=== PATIENT | female | born 1960 | race Caucasian/White ===

== ENCOUNTER 2019-08-22 15:09 | Outpatient (CLI) | payer OTHER, SELFPAY ==
--- NOTE | ~2019-08-22 | MM_ITS ---
EXAMINATION: MM screening [facility] BI w yvonne HISTORY: Screening mammogram TECHNIQUE: Craniocaudal and mediolateral oblique 3-D tomosynthesis images were obtained and synthetic 2-D images were generated. CAD analysis was submitted and interpreted. COMPARISON: Comparison to multiple prior studies sequentially, with oldest reviewed study dated 09/2013. BREAST PARENCHYMAL COMPOSITION: There are scattered areas of fibroglandular density. FINDINGS: There is no evidence of suspicious mass, calcification, or architectural distortion to sugg est malignancy in either breast. There has been no suspicious interval change. IMPRESSION: 1. No mammographic evidence of malignancy. 2. Recommend routine screening mammography in one year. BI-RADS Category 1: Negative Reviewed, dictated and finalized at location A.
== END 2019-08-22 15:10 | disposition home or self-care (01) ==
LOC: ANHIMG 15:13
PROVIDERS: PCP Family Medicine; Visit Provider Advanced Practice Midwife
DX: Z12.31 Encounter for screening mammogram for malignant neoplasm of breast (principal)
CPT/HCPCS: 77063; 77067

== ENCOUNTER 2019-09-22 14:36 | Outpatient (CLI) | payer OTHER, SELFPAY ==
--- NOTE | ~2019-09-22 | DEXA_ITS ---
Bone Density Report Name: Shona Sanchez Age: 59 Sex: Female Ethnicity: White Date of : 1960 Indication: osteopenia; monitoring treatment; parental hip fracture; height loss; prior fracture; hysterectomy; post menopausal Referring Provider: CYNTHIA BONNER Study: Bone densitometry was performed. Exam Date: September 22, 2019 Accession number: [id number] Bone Density: Region BMD T-score Z-score Classification AP Spine (L1-L4) 0.844 -1.8 -0.6 Osteopenia Femoral Neck (Left) 0.515 -3.0 -1.8 Osteoporosis Total Hip (Left) 0.730 -1.7 -0.9 Osteopenia Total Hip Bilateral Avg 0.729 -1.8 -0.9 Osteopenia Femoral Neck (Right) 0.516 -3.0 -1.8 Osteoporosis Total Hip (Right) 0.727 -1.8 -0.9 Osteopenia World Health Organization criteria for BMD impression classify patients as: Normal (T-score at or above -1.0), Osteopenia (T-score between -1.0 and -2.5), or Osteoporosis (T-score at or below -2.5). 10-year Fracture Risk: FRAX not reported because: Some T-score for Spine Total or Hip Total or Femoral Neck at or below -2.5 Treated for osteoporosis Previous Exams: Region Exam Age BMD T-score BMD Change BMD Change Date g/cm2 vs Baseline vs Previous AP Spine(L1-L4) 09/22/2019 59 0.844 -1.8 0.028(3.4%)* -0.019(-2.2%) 07/22/2017 57 0.862 -1.7 0.046(5.7%)* 0.046(5.7%)* 08/05/2014 54 0.816 -2.1 Total Hip(Left) 09/22/2019 59 0.730 -1.7 -0.006(-0.8%) -0.056(-7.2%)* 07/22/2017 57 0.786 -1.3 0.051(6.9%)* 0.051(6.9%)* 08/05/2014 54 0.736 -1.7 Total Hip(Right) 09/22/2019 59 0.727 -1.8 -0.008(-1.0%) -0.041(-5.3%)* 07/22/2017 57 0.768 -1.4 0.033(4.5%)* 0.033(4.5%)* 08/05/2014 54 0.735 -1.7 *Denotes significance at 95% confidence level, LSC for AP Spine = 0.022 g/cm2, LSC for Total Hip = 0.027 g/cm2 Clinical Information Provided by Patient: Has had a low trauma fracture Parent has had a hip fracture Has 3 or more alcoholic drinks per day Is being treated for osteoporosis Has used the following medications: Fosamax (i.e. alendronate), Vitamin D, Calcium Has the following medical conditions: Hysterectomy Patient maximum height was 64.0 Menopause Age: 54 Does not regularly consume dairy products Drinks caffeinated beverages Onset of menses at age 12 Number of children 0 Impression: The patient has established osteoporosis, based on the Left Femoral Neck T-score and the existence of a prior fracture. The patient has risk fact
== END 2019-09-22 14:37 | disposition home or self-care (01) ==
PROVIDERS: PCP Family Medicine; Visit Provider Family Medicine
DX: Z78.0 Asymptomatic menopausal state (principal); M85.88 Other specified disorders of bone density and structure, other site; M81.0 Age-related osteoporosis without current pathological fracture; M85.852 Other specified disorders of bone density and structure, left thigh; M85.851 Other specified disorders of bone density and structure, right thigh
CPT/HCPCS: 77080

== ENCOUNTER 2020-06-08 16:40 | Outpatient (CLI) | payer OTHER, SELFPAY | END 2020-06-08 16:41 | disposition home or self-care (01) | LOC: ANHCOVIDVC 16:40 | PROVIDERS: PCP Family Medicine | DX: Z23 Encounter for immunization (principal) | CPT/HCPCS: 0001A; 91300 ==

== ENCOUNTER 2020-06-29 16:38 | Outpatient (CLI) | payer OTHER, SELFPAY | END 2020-06-29 16:39 | disposition home or self-care (01) | LOC: ANHCOVIDVC 16:38 | PROVIDERS: PCP Family Medicine | DX: Z23 Encounter for immunization (principal) | CPT/HCPCS: 0002A; 91300 ==

== ENCOUNTER 2020-08-08 21:07 | Emergency (ER) | payer OTHER, SELFPAY ==
[2020-08-08 21:27] VITALS: BP 147/70; PULSE 73; RESP 14; TEMP 37.1; O2SAT 97
[2020-08-08 21:36] VITALS: BP 140/76; PULSE 73; RESP 18; TEMP 37.1; O2SAT 99
--- NOTE | 2020-08-08 22:08 | ED.EAR ---
HPI - Ear Problem General Chief complaint: Ear Stated complaint: bug in ear Time Seen by Provider: 08/08/20 21:59 Source: patient and family Mode of arrival: ambulatory Limitations: no limitations History of Present Illness HPI Narrative: 60-year-old with no major medical problems here with complaints of possible foreign body in the right ear. Patient states that she was mowing the lawn this evening accidentally pine lemon got into her right ear soon after she felt a bug crawling in the ear. She states that she is feeling for quite some time however now she feels much better she denies any other complaints MD Complaint: foreign body (Right ear) Location: right ear Duration: resolved Severity: mild Relieving factors: nothing Exacerbating factors: nothing Discharge from ear: Reports no Related Data Allergies Allergy/AdvReac Type Severity Reaction Status Date / Time No Known Allergies Allergy Mild Verified 04/09/20 12:12 Review of Systems Review of Systems: All systems reviewed & are unremarkable except as noted in HPI and below Constitutional: Constitutional: Reports no additional constitutional complaints Eyes: Eyes: Reports no additional eye complaints ENT: Reports as per HPI Cardiovascular: Cardiovascular: Reports no additional cardiovascular complaints Respiratory: Respiratory: Reports no additional respiratory complaints Gastrointestinal: Gastrointestinal: Reports no additional gastrointestinal complaints Musculoskeletal: Musculoskeletal: Reports no additional musculoskeletal complaints PMFSH Past Medical History Medical History Anxiety, generalized BMI 28.0-28.9,adult Diarrhea Screening for lipid disorders Thoracic spine dysfunction Surgical History Surgical History History of hysterectomy History of tonsillectomy and adenoidectomy Family History Family History Father Family history of Alzheimer's disease Family history of congestive heart failure Mother Family history of primary malignant neoplasm of liver Other Cerebrovascular accident Family history of arthritis Family history of heart disease in male family member before age 55 Family history of malignant neoplasm Social History Social History Smoking status: Former smoker Smoking end date: 02/24/08 Alcohol intake: current Gender identity (if verbalized by the patient): Female Exam Narrative: Exam Narrative: GENERAL: Well-appearing, well-nourished, and in no acute distress. HEAD: Normocephalic, atraumatic. EYES: PERRLA and EOMI. ENT: Nares clear, no rhinorrhea or epistaxis. Mucous membranes moist. Both the ear canals are normal no foreign body seen NECK: Supple. CHEST: Clear to auscultation. No respiratory distress. HEART: Regular rate and rhythm. No murmur heard. EXTREMITIES: Normal range of motion. No edema. SKIN: Warm, dry, no rash. NEURO: No focal deficits. Alert and oriented x3. PSYCH: Normal mood and affect. Course Course Emergency Course: I did not see any foreign body in either canals. Patient feels happy about it . Vital Signs Vital signs: Vital Signs Temperature 37.1 C 08/08/20 21:27 Pulse Rate 73 08/08/20 21:27 Respiratory Rate 14 08/08/20 21:27 Blood Pressure 147/70 H 08/08/20 21:27 Pulse Oximetry 97 08/08/20 21:27 Temperature 37.1 C 08/08/20 21:36 Pulse Rate 73 08/08/20 21:36 Respiratory Rate 18 08/08/20 21:36 Blood Pressure 140/76 08/08/20 21:36 Pulse Oximetry 99 08/08/20 21:36 Medical Decision Making Vital Signs Vital Signs: Vital Signs Temperature 37.1 C 08/08/20 21:27 Pulse Rate 73 08/08/20 21:27 Respiratory Rate 14 08/08/20 21:27 Blood Pressure 147/70 H 08/08/20 21:27 Pulse Oximetry 97 08/08/20 21:27 Temperature 37
== END 2020-08-08 22:21 | disposition home or self-care (01) ==
PROVIDERS: Emergency Provider Family Medicine; PCP Family Medicine
DX: H93.8X1 Other specified disorders of right ear (principal); Z87.891 Personal history of nicotine dependence
CPT/HCPCS: 99281

== ENCOUNTER 2020-09-21 14:59 | Outpatient (CLI) | payer BC, SELFPAY ==
--- NOTE | ~2020-09-21 | MM_ITS ---
EXAMINATION: MM screening blank BI w yvonne HISTORY: Screening mammogram TECHNIQUE: Craniocaudal and mediolateral oblique 3-D tomosynthesis images were obtained and synthetic 2-D images were generated. CAD analysis was submitted and interpreted. COMPARISON: , 07/26/2018, 07/22/2017 bilateral digital screening mammogram examinations BREAST PARENCHYMAL COMPOSITION: The breasts are almost entirely fatty. FINDINGS: There is no evidence of suspicious mass, calcification, or architectural distortion to sugg est malignancy in either breast. There has been no suspicious interval change. IMPRESSION: 1. No mammographic evidence of malignancy. 2. Recommend routine screening mammography in one year. BI-RADS Category 1: Negative Reviewed, dictated and finalized at location A.
== END 2020-09-21 15:00 | disposition home or self-care (01) ==
LOC: ANHIMG 15:01
PROVIDERS: PCP Family Medicine; Visit Provider Advanced Practice Midwife
DX: Z12.31 Encounter for screening mammogram for malignant neoplasm of breast (principal)
CPT/HCPCS: 77063; 77067

== ENCOUNTER 2022-03-24 14:53 | Outpatient (CLI) | payer BC, SELFPAY ==
--- NOTE | ~2022-03-24 | MM_ITS ---
EXAMINATION: MM screening blank BI w yvonne HISTORY: Screening TECHNIQUE: Craniocaudal and mediolateral oblique 3-D tomosynthesis images were obtained and synthetic 2-D images were generated. CAD analysis was submitted and interpreted. COMPARISON: Comparison to multiple prior studies sequentially, with oldest reviewed study dated 07/04. BREAST PARENCHYMAL COMPOSITION: Breast composed of scattered areas of fibroglandular density FINDINGS: There is no evidence of suspicious mass, calcification, or architectural distortion to sugg est malignancy in either breast. There has been no suspicious interval change. IMPRESSION: 1. No mammographic evidence of malignancy. 2. Recommend routine screening mammography in one year. BI-RADS Category 1: Negative Reviewed, dictated and finalized at location A. 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
== END 2022-03-24 14:54 | disposition home or self-care (01) ==
LOC: ANHIMG 14:55
PROVIDERS: PCP Family Medicine; Visit Provider Advanced Practice Midwife
DX: Z12.31 Encounter for screening mammogram for malignant neoplasm of breast (principal)
CPT/HCPCS: 77063; 77067

== ENCOUNTER 2023-06-18 14:47 | Outpatient (CLI) | payer BC, SELFPAY ==
--- NOTE | ~2023-06-18 | DEXA_ITS ---
Bone Density Report Name: KIM POP Age: 63 Sex: Female Ethnicity: White Date of : 1960 Indication: postmenopausal osteoporosis; monitoring treatment; height loss; history of glucocorticoids; cancer; hysterectomy; Referring Provider: MARILUZ MARTINEZ Study: Bone densitometry was performed. Exam Date: June 18, 2023 Accession number: [id number] Bone Density: Region BMD T-score Z-score Classification AP Spine(L1-L4) 0.877 -1.5 0.0 Osteopenia Femoral Neck (Left) 0.520 -3.0 -1.6 Osteoporosis Total Hip (Left) 0.845 -0.8 0.3 Normal Femoral Neck (Right) 0.516 -3.0 -1.6 Osteoporosis Total Hip (Right) 0.739 -1.7 -0.6 Osteopenia Total Hip Mean 0.792 -1.3 -0.2 Osteopenia World Health Organization criteria for BMD impression classify patients as: Normal (T-score at or above -1.0), Osteopenia (T-score between -1.0 and -2.5), or Osteoporosis (T-score at or below -2.5). 10-year Fracture Risk: FRAX not reported because: Some T-score for Spine Total or Hip Total or Femoral Neck at or below -2.5 Treated for osteoporosis Previous Exams: Region Exam Age BMD T-score BMD Change BMD Change Date g/cm2 vs Baseline vs Previous AP Spine (L1-L4) 06/18/2023 63 0.877 -1.5 0.061 (7.4%)* 0.157 (21.7%)* 06/14/2020 60 0.720 -3.0 -0.096 (-11.8% -0.124 (-14.7% 09/22/2019 59 0.844 -1.8 0.028 (3.4%)* -0.019 (-2.2%) 07/22/2017 57 0.862 -1.7 0.046 (5.7%)* 0.035 (4.3%)* 04/23/2015 54 0.827 -2.0 0.011 (1.3%) 0.011 (1.3%) 08/05/2014 54 0.816 -2.1 Total Hip(Left) 06/18/2023 63 0.845 -0.8 0.109 (14.9%)* 0.142 (20.2%)* 06/14/2020 60 0.703 -2.0 -0.033 (-4.5%) -0.027 (-3.7%) 09/22/2019 59 0.730 -1.7 -0.006 (-0.8%) -0.056 (-7.2%) 07/22/2017 57 0.786 -1.3 0.051 (6.9%)* 0.027 (3.6%) 04/23/2015 54 0.759 -1.5 0.023 (3.2%) 0.023 (3.2%) 08/05/2014 54 0.736 -1.7 Total Hip(Right) 06/18/2023 63 0.739 -1.7 0.004 (0.6%) 0.047 (6.7%)* 06/14/2020 60 0.693 -2.0 -0.043 (-5.8%) -0.035 (-4.8%) 09/22/2019 59 0.727 -1.8 -0.008 (-1.0%) -0.041 (-5.3%) 07/22/2017 57 0.768 -1.4 0.033 (4.5%)* 0.023 (3.1%) 04/23/2015 54 0.746 -1.6 0.010 (1.4%) 0.010 (1.4%) 08/05/2014 54 0.735 -1.7 *Denotes significance at 95% confidence level, LSC for AP Spine = 0.022 g/cm2, LSC for Total Hip = 0.027 g/cm2 Clinical Information Provided by Patient: Has taken Glucocorticoids Is being treated for osteoporosis Has used the followin
--- NOTE | ~2023-06-18 | MM_ITS ---
EXAMINATION: MM screening blank BI w yvonne HISTORY: Screening mammogram TECHNIQUE: Craniocaudal and mediolateral oblique 3-D tomosynthesis images were obtained and synthetic 2-D images were generated. CAD analysis was submitted and interpreted. COMPARISON: 03/24/2022, 09/21/2020 bilateral screening mammogram examinations BREAST PARENCHYMAL COMPOSITION: The breasts are almost entirely fatty. FINDINGS: There is no evidence of suspicious mass, calcification, or architectural distortion to sugg est malignancy in either breast. There has been no suspicious interval change. IMPRESSION: 1. No mammographic evidence of malignancy. 2. Recommend routine screening mammography in one year. BI-RADS Category 1: Negative Reviewed, dictated and finalized at location A.
== END 2023-06-18 14:48 | disposition home or self-care (01) ==
LOC: ANHIMG 14:49
PROVIDERS: PCP Family Medicine; Visit Provider Advanced Practice Midwife
DX: Z12.31 Encounter for screening mammogram for malignant neoplasm of breast (principal); N95.1 Menopausal and female climacteric states; M85.88 Other specified disorders of bone density and structure, other site; M81.0 Age-related osteoporosis without current pathological fracture; M85.851 Other specified disorders of bone density and structure, right thigh
CPT/HCPCS: 77063; 77067; 77080

== ENCOUNTER 2024-06-28 14:52 | Outpatient (CLI) | payer BC, SELFPAY ==
--- NOTE | ~2024-06-28 | MM_ITS ---
EXAMINATION: MM screening blank BI w yovnne HISTORY: Screening TECHNIQUE: Craniocaudal and mediolateral oblique 3-D tomosynthesis images were obtained and synthetic 2-D images were generated. CAD analysis was submitted and interpreted. COMPARISON: Comparison to multiple prior studies sequentially, with oldest reviewed study dated 07/22. BREAST PARENCHYMAL COMPOSITION: Not Dense: The breasts are almost entirely fatty. FINDINGS: There is no evidence of suspicious mass, calcification, or architectural distortion to sugg est malignancy in either breast. There has been no suspicious interval change. IMPRESSION: 1. No mammographic evidence of malignancy. 2. Recommend routine screening mammography in one year. BI-RADS Category 1: Negative Reviewed, dictated and finalized at location A.
--- OUTSIDE RECORDS SUMMARY | 2024-06-28 15:00 | XMS_ITS | Clinical Summary ---
Author Organization [facility] Address [address] [place] [address] Care Team Providers [employer] Team Member Name Role Phone None, Provider MD Primary Care Provider Unavaila ble Allergies No known active allergies Medications ALPRAZolam 0.25 MG tablet Take 0.25 mg by mouth daily as needed for Anxiety. 05/06/2021 Active cetirizine 10 MG tablet Take 10 mg by mouth daily. Active omeprazole 40 MG capsule Take 20 mg by mouth daily. Active alendronate 70 MG tablet Take 70 mg by mouth every 7 days. Sundays Active vitamin D3, cholecalciferol , (VITAMIN D) 1000 UNIT Tab tablet Take 1 tablet by mouth daily. Active multi vitamin/mineral s tablet Take 1 tablet by mouth daily. Active Calcium Carbonate (CALCIUM 500 OR) Take 500 mg by mouth daily. Active amLODIPine 5 MG tablet Take 1 tablet (5 mg total) by mouth daily. 30 tablet 07/26/2021 Active aspirin 81 MG chewable tablet Chew 1 tablet (81 mg total) by mouth daily. 30 tablet 07/26/2021 Active Social History Tobacco Use Types Packs/Day Years Used Date Smoking Tobacco: Former Smokeless Tobacco: Never Alcohol Use Standard Drinks/Week Comments Yes 0 (1 standard drink = 0.6 oz pur e alcohol) Comments Unknown Sex and Gender Information Value Date Recorded Sex Assigned at Not on file Legal Sex Female 1:36 PM CDT Gender Identity Not on file Sexual Orientation Not on file Last Filed Vital Signs Vital Sign Reading Time Taken Comments Blood Pressure 156/88 07/26/2021 4:51 PM CDT Pulse 80 07/26/2021 4:51 PM CDT Temperature 36.6 C (97.9 F) 07/26/2021 4:51 PM CDT Respiratory Rate 16 07/26/2021 4:51 PM CDT Oxygen Saturation 98% 07/26/2021 4:51 PM CDT Inhaled Oxygen Concentration - - Weight 74.2 kg (163 lb 9.3 oz) 07/26/2021 1:48 P M CDT Height 161.3 cm (5' 3.5 ) 07/26/2021 1:47 PM CDT Body Mass Index 28.52 07/26/2021 1:47 PM CDT Plan of Treatment Health Maintenance Due Date Last Done Comments Cervical Cancer Screening Pa p Smear (Age 30 to 64) Every 3 Years 1960 Colorectal Cancer Screening Colonoscopy (10 Years) 1960 Annual Physical 1964 Hepatitis C 05/14/1979 Cervical Cancer Screening Pa p with HPV Testing (Age 30 to 64) Every 5 Years 05/14/1991 Cervical Cancer Screening wi th HPV 05/14/1991 Mammogram Screening 2001 Pneumococcal Vaccine: 50+ Years (1 of 1 - PCV) 05/14/2011 Zoster Vaccines (1 of 2) 05/14/2011 COVID-19 Vaccine (4 - 2023-2 5 season) 2023 03/11/2021, 06/29/2020, 06/08/2020 DTaP, Tdap and Td Vaccines ( 2 - Td or Tdap) 10/31/2024 10/31/2014 RSV Immunization or 60+ Years (1 - 1-dose 75+ series) 2036 Meningococcal B Vaccine Aged Out No l onger eligible based on patient's age to complete this topic Meningococcal Vaccine Aged Out No inderjit dorina eligible based on patient's age to complete this topic RSV Immunizations Under 20 Months Aged Out No longer eligible b ased on patient's age to complete this topic [place] [address] [place] [address] Care Teams [employer] Team Member Relationship Specialty Start Date End Date None, Provider, PCP - General 07/26/21
--- OUTSIDE RECORDS SUMMARY | 2024-06-28 15:00 | XMS_ITS | Data Portability ---
Author Organization [facility] [place] Address [address] [place] [address] Care Team Providers Care Staff Nuclear Weapons Officer Name Role Phone BISHNU MAX Primary Care Provider Assessment Encounter Date Assessment Date Assessment LastModified by Organization Details LastModified Time 11/29/2019 11/29/2019 Annual gynecological exam performed. Patient will come back in a year unless there are new symptoms. [email or web address] Not available 11/29/2019 14:15:12 01/11/2021 01/11/2021 Annual gynecological exam performed. Patient will come back in a year unless there are new symptoms. Suggest Calcium with Vitamin D if not eating in diet. Patient advised to get annual flu shot. Recommend yearly physicals and preform monthly breast exams. Genetic testing is available for patients with family history of cancer. Engage in safe sexual practices, use condoms. Encouraged to have daily exercise. Avoid tobacco and illicit drugs, moderation of alcohol. If BMI greater than 25 dietary consult advised. If you have any questions please call or email. [email or web address] Not available 01/11/2021 14:33:43 02/26/2022 02/26/2022 Annual gynecological exam performed. Patient will come back in a year unless there are new symptoms. Suggest Calcium with Vitamin D if not eating in diet. Patient advised to get annual flu shot. Recommend yearly physicals and preform monthly breast exams. Genetic testing is available for patients with family history of cancer. Engage in safe sexual practices, use condoms. Encouraged to have daily exercise. Avoid tobacco and illicit drugs, moderation of alcohol. If BMI greater than 25 dietary consult advised. If you have any questions please call or email. [email or web address] Not available 02/26/2022 17:10:10 04/03/2023 04/03/2023 Annual gynecological exam performed. Patient will come back in a year unless there are new symptoms. Suggested Calcium with Vitamin D 1200-1500mg daily. Patient advised to get an annual flu shot in the fall and she could obtain at [facility] or [facility] care clinic. Also to obtain TDap vaccination if you have not had one in the last 10 years. Recommend yearly mammograms. Encouraged monthly self breast exams. Encourage safe sexual practices, to use condoms and limit partners if not already in a monogamous relationship. Engage in daily exercise of low impact aerobic exercise 45-60 minutes 4-5 times weekly. Avoid tobacco and illicit drugs as well as using moderation with alcohol intake less than 1-2 8 oz beverages daily. This lifestyle behavior pattern will lead to less health conditions and longer life span. If BMI greater than 25 weight watchers or dietary consult advised. All questions have been answered. Patient appears to understand information, but if you have any questions please call or respond to this email. f/u one year Not available 04/04/2023 17:10:01 Plan of Treatment Reminders Order Date Submit Date Provider Last Modified By Organization Details Last Modified Time Details Appointments [facility] 2024 03:15P Froilan Perrin CNM Not available Not available Not available Lab None recorded. Referral None recorded. Procedures None recorded. Surgeries None recorded. Imaging None recorded. Medication Orders alendrona te 70 mg tablet 2021 022 [facility][id number], [address], [place], [id number], 04/24/2021 14:17:38 ibandrona te 150 mg tablet 2020 021 [email or web address] [id number] [address], [place], [id number], 04/03/2023 16:11:45 Patient TargetsNo targets recorded. Patient Instructions Encounter Date Encounter Id Patient Instructions Last Modified By Organization Details Last Modified Time 11/29/2019 [id number] rpt pap of vaginal cuff, Suggest Calcium with Vitamin D if not eating in diet. Patient advised to get annual flu shot. Recommend yearly physicals and preform monthly breast exams. Genetic testing is available for patients with family history of cancer. Engage in safe sexual practices, use condoms. Encouraged to have daily exercise. Avoid tobacco and illicit drugs, moderation of alcohol. If BMI greater than 25 dietary consult advised. If you have any questions please call or email. Not available 11/29/2019 14:37:08 Reason for Referral None Reported. Results Created Date Observation Date Name Description Value Unit Range Abnormal Flag Note LastModifiedBy Organization Detail LastModifiedTime 11/29/19 20 12/01/2019 pap, LB Pap test thin prep Negati ve for Intrae pithel ial Lesion or Malign kiana normal ACCES JONEL #: [id number] Sourc e: Demetrice winston LMP: 2014 Date Taken : 11/28 Speci men Type: ThinP rep Vial Date Repor ines: 2019 Clini barbara Data: Cytot ech: Augustin green, CT( CP) Date Repor ines: 2019 Speci men Adequ acy: Satis facto ry for evalu ation Scant cellu larit y Gener al Categ oriza tion: NEGAT REI FOR INTRA EPITH ELIAL LESIO N OR SARAH CHATMAN Inter preta tion/ Resul t: Atrop hy D N A A S S A Y S R E P O R T TEST NAME RESUL TS ----- ---- ----- -- HPV High Risk Scree n (TMA) ThinP rep Vial The human papil lomav irus (HPV) High Risk Scree n is an FDA-a pprov ed in-vi tro ampli fied nucle ic acid test for the quali tativ e detec tion of E6/E7 viral mRNA. Resul ts shodebora d be corre lated with patiotoniel nt prese ntati on, histo ry, cervi barbara cytol ogy and other clini barbara and labor atory findi ngs. See https ://ww [employer].com/s ites/ defyolanda lt/fi les/2 018-0 3/AW- 64233 _002_ 01.pd f for luiz er infor matrosina n. Test perfo rmed by [facility] d/b/a [facility], [address], [place] [address] , Ian Howard ra, DO, Labor June [employer]. HPV High Risk *HPV NOT DETEC INES (TYPE S 16, 18, 31, 33, 35, 39, 45, 51, 52, 56, 58, 59, 66, 68) *HPV: The human papil lomav irus (HPV) High Risk Mario Alberto aquino is an FDA-a pprov ed in-vi tro ampli fied nucle ic acid test for the quali tativ e detec tion of E6/E7 viral mRNA. Resul ts shoul d be corre lated with patie nt prese ntati on, histo ry, cervi barbara cytol ogy and other clini barbara and labor atory findi ngs. See https ://Wuzzuf/s ites/ defau lt/fi les/2 018-0 3/AW- 74162 _002_ 01.pd f for [facility] infor naeem miles. Test perfo rmed by [facility] d/b/a [facility], [address], [place] [address] , Ian Howard ra, DO, Labor at[employer]. End of t Techn ical servi woo provi ded by [facility], d/b/a [facility], [address] [place] [address] Maulik Gould MD, Labor [facility] [employer]. Case revie wed and diagn osis rende red at [employer] i[facility] log[facility], d/b/a Yolanda [facility], [address] [place] [address] Maulik Gould MD, Labor [employer]. CONFI DENTI AL Not Available [facility] ([facility]) [address], [place], [address], 12/01/2019 16:29:22 11/29/19 20 11/30/2019 HPV DNA, high- risk HPV high risk NOT DETECT ED normal Not Available [facility] ([facility]) [address], [place], [address], 12/01/2019 16:29:23 01/15/20 21 01/14/2021 IMAGE GUIDE D PAP AND HPV REGAR DLESS image guided Pap, HPV regardless of Pap result SEE RESULT S BELOW CASE REPOR T: Cytol ogy Gynec ologi barbara Repor t Case: [id number] Autho riherbie g Provi sari: Ashley Carias, TEGAN Byrd cted: 01/14 0920 Order ing Locat ion: [place] [facility] Recei boo: 01/15 0112 First Scree n: Strut z, Willi am, CT Rescr een: Bettina Browning, [place] Speci men: Scree kiel Pap - Image d, Vagin a STATE MENT OF ADEQU ACY: UNSAT ISFAC TORY SPECI MEN FINAL DIAGN OSIS: Unsat isfac tory for evalu ation . Inade quate squam ous epith elial compo nent for diagn osis. Paty cooper maria del carmen d by Bettina Browning, CT on 2020 at 7:55 AM ----- ----- ----- ----- ----- ----- ----- ----- ----- ----- ----- ----- ----- ----- ----- ----- ----- ---- HPV RESUL TS: HPV mRNA E6/E7 : No HPV mRNA Detec ines NOTE: This high risk HPV mRNA assay detec ts fourt een high- risk HPV types (16, 18, 31, 33, 35, 39, 45, 51, 52, 56, 58, 59, 66, 68) witho ut diffe renti ation . COMME NT: Slide scree antoni manua lly due to rejec tion by the Thinp rep Imagi ng Syste m. CLINI BARBARA INFOR MATIO N: Menst rual Statu s: LMP (if appli cable ): Clini barbara Histo ry/Pr eviou s Pap: Type of Neopl fawad (if appli cable ): Signi randall t Clini barbara Findi ngs: Other Histo ry: Hormo alexey (if appli cable ): Not Available [facility] (Lab) [address], [place], [address], 01/24/2021 08:58:18 02/26/19 23 02/26/2022 IMAGE GUIDE D PAP AND HPV REGAR DLESS image guided Pap, HPV regardless of Pap result SEE RESULT S BELOW CASE REPOR T: Cytol ogy Gynec ologi barbara Repor t Case: [id number] Autho mal da Provi sari: Ashley Carias NP Colle cted: 02/26 1853 Order ing Locat ion: [place] [facility] Recei boo: 02/27 0236 First Scree n: Noora ni, Moham ed, CT Rescr een: Bj Gonsales Speci men: Scree kiel Pap - Image d, Vagin a STATE MENT OF ADEQU ACY: UNSAT ISFAC TORY SPECI MEN FINAL DIAGN OSIS: Unsat isfac tory for evalu ation . Inade quate squam ous epith elial compo nent for diagn osis. Paty cooper maria del carmen d by Bj Gonsales on 023 at 10:07 AM ----- ----- ----- ----- ----- ----- ----- ----- ----- ----- ----- ----- ----- ----- ----- ----- ----- ---- HPV RESUL TS: HPV mRNA E6/E7 : No HPV mRNA Detec ines NOTE: This high risk HPV mRNA assay detec ts fourt een high- risk HPV types (16, 18, 31, 33, 35, 39, 45, 51, 52, 56, 58, 59, 66, 68) witho ut mariselae reji ation . COMME NT: Slide scree antoni hanley lly due to rejec tion by the Thinp rep Imagi betina Mclean m. CLINI BARBARA INFOR MATIO N: Menst rual Statu s: LMP (if appli cable ): Clini barbara Histo ry/Pr eviou s Pap: Type of Neopl fawad (if appli cable ): Signi fican t Clini barbara Findi ngs: Other Histo ry: Hormo alexey (if appli cable ): Not Available [facility] (Lab) [address], [place], [address], 02/28/2022 11:11:10 09/22/19 21 09/21/2020 MAMMO , scree kiel, bilat eral No observ ation record ed. [address], [address], 10/01/2020 10:28:22 03/24/19 23 03/24/2022 MAMMO , scree kiel, bilat eral No observ ation record ed. [address] [address], [place], [address], 04/01/2022 11:00:17 06/18/19 24 06/18/2023 MAMMO , scree kiel, bilat eral No observ ation record ed. [address] [address], [place], [address], 06/19/2023 10:15:56 06/21/19 24 06/18/2023 DEXA, axial skele ton + verte bral fract ure asses sment No observ ation record ed. [address], [address], 06/30/2023 18:19:36 Result Notes None recorded. Problems Name Problem SNOMED Code Status Onset Date Resolution Date Notes Provider Name and Address Organization Details Recorded Time History of abnormal cervical Papanico laou smear [id number] Completed 201901/11/2021 Romina guerrero [facility] 14:09:56 Human papillom avirus DNA detectio n Completed 201901/11/2021 Romina Brown yolanda [facility] 14:09:59 Female genital organ symptoms 668224195 Completed 201001/11/2021 Unspecif ied symptom associat ed with female genital organs;P ractice ID: 0001 Romina Brown [facility] 14:09:50 Dyspareu clyde [id number] Completed 201101/11/2021 Dyspareu clyde;Prac teresa ID: 0001 Romina Brown [facility] 14:09:46 Urgent desire to urinate [id number] Completed 201101/11/2021 URGENCY OF URINATIO N;Practi ce ID: 0001 Romina Brown [facility] 14:10:20 Radiolog y result abnormal [id number] Completed 201101/11/2021 Nonspeci fic abnormal findings on radiolog ical and other examinat ion of abdomina l area, includin g retroper itoneum; Practice ID: 0001 Romina Brown [facility] 14:10:07 Speciali zed medical examinat ion Completed 201101/11/2021 Routine gynecolo gical examinat ion;Prac teresa ID: 0001 Romina Brown [facility] 14:10:18 Screenin g for malignan t neoplasm of cervix Completed 201101/11/2021 Pap Smear;Pr actice ID: 0001 Romina Brown [facility] 14:10:09 Screenin g for malignan t neoplasm of rectum Completed 201101/11/2021 Screenin g for malignan t neoplasm s of the rectum;P ractice ID: 0001 Romina guerrero, [facility] 14:10:13 Atrophic vaginiti s [id number] Completed 201201/11/2021 Postmeno pausal atrophic vaginiti s;Practi ce ID: 0001 Rominaharry Brown [facility], [facility] 14:09:44 Osteopor osis 82390351 Completed 201201/11/2021 Osteopor osis, unspecif ied;Prac teresa ID: 0001 Rominaharry Brown [facility] 14:10:03 Adult health examinat ion Completed 201401/11/2021 Routine general medical examinat ion at a [facility] facility ;Practic e ID: 0001 Romina Brown [facility] 14:09:42 Herpesvi ral vesicula r dermatit is [id number] Completed 201501/11/2021 Herpesvi ral vesicula r dermatit is;Pract ice ID: 0001 Rominaharry Brown [facility] 14:09:53 Molluscu m contagio sum infectio n [id number] Completed 201501/11/2021 Molluscu m contagio sum;Prac teresa ID: 0001 Rominaharry Brown [facility] 14:10:[address] Concept Completed 201501/11/2021 Encntr for general adult medical exam w/o abnormal findings ;Practic e ID: 0001 Romina Brown yolanda [facility] 14:10:[address] Concept Completed 201501/11/2021 Encntr for graduate advisor exam (general ) (routine ) w/o abn findings ;Practic e ID: 0001 Romina guerrero, [facility] 14:10:16 Human papillom avirus deoxyrib onucleic acid detected , high risk on cervical specimen [id number] Completed 201801/11/2021 Cervical high risk HPV DNA test positive ;Recorde d Elsewher e: No Locat ion: Tete otoniel [facility] S ource: EHR Is Architect sully: N Jjti ce ID: 0001 Santy lable Time: 03:45:00 PM Romina Brown yolanda [facility] 14:09:57 Screenin g for malignan t neoplasm of colon Completed 201001/11/2021 Special screenin g for malignan t neoplasm s, colon;Pr actice ID: 0001 Romina Brown yolanda, [facility] 14:10:11 Emotiona l state finding Completed 201801/11/2021 Anxiety depressi on;Recor ded Elsewher e: No Locat ion: [facility] S ource: EHR Is Architect sully: N Jjti ce ID: 0001 Santy lable Time: 01:00:00 PM Romina guerrero [facility] 14:09:47 Pelvic and perineal pain [id number] Completed 201601/11/2021 Pelvic pain;Rec orded Elsewher e: No [facility] Is Architect sully: N Practi ce ID: 0001 Snaty lable Time: 01:00:00 PM Romina Brown yolanda [facility] 14:10:05 Problem Notes None recorded. Procedures Surgical History Date Name Laterality Status Provider Name and Address Organization Details Recorded Time 04/03/19 Date of Last Pap Smear completed Romina Brown [facility] 04/03/2023 16:12:22 09/24/19 23 procedure on lung completed [facility] 04/03/2023 16:15:01 06/24/19 23 cardiac catheterization completed [facility] 04/03/2023 16:14:13 03/24/19 23 Date of Last Mammogram completed [facility] 04/03/2023 16:12:36 09/22/19 21 completed [facility] 01/11/2021 14:10:56 02/23/19 15 Colposcopy completed [facility] 04/03/2023 16:11:20 02/23/19 15 Date of Last Colonoscopy completed [facility] 02/26/2022 16:06:01 02/23/19 15 Colonoscopy completed [facility] 02/26/2022 16:06:26 02/23/19 11 endometrial biopsy completed [facility] 11/29/2019 01:02:38 07/08/19 05 Total Hysterectomy completed [facility] 11/29/2019 01:03:18 02/23/18 78 termination of completed [facility] 02/26/2022 13:11:04 02/23/18 68 tonsilectomy/adeno ids completed [facility] 01/11/2021 14:11:45 Imaging Results Imaging Date Name Status LastModified by Organiz ation Details LastModified Time 09/21/2020 MAMMO, screening, bilateral completed [facility] [address], [place], [address], 10/01/2020 10:28:22 03/24/2022 MAMMO, screening, bilateral completed [address], [place], [address], 04/01/2022 11:00:17 06/18/2023 MAMMO, screening, bilateral completed [address], [place], [address], 06/19/2023 10:15:56 06/18/2023 DEXA, axial skeleton + vertebral fracture assessment completed [address], [place], [address], 06/30/2023 18:19:36 Procedure Notes None recorded. Medical Equipment None Reported. Allergies No known drug allergies Medications Name Sig Start Date Stop Date Status Note LastModified by Organization Details LastModified Time Xanax 0.5 mg tablet take 1 tablet by oral route 3 times every day 01/11 completed Prescrib ed Elsewher e: Yes [facility] By: tobias Encounte r DateTime : 04/01/19 12 08:37:36 PM Not Available Not Available Not Available azithromy manas 250 mg tablet 02/26 completed Not Available Not Available Not Available alendrona te 70 mg tablet TAKE 1 TABLET BY MOUTH EVERY WEEK 2024 active Not Available Not Available Not Avai lable Prilosec 20 mg capsule,d elayed release take 1 capsule by oral route every day before a meal active Prescrib ed Elsewher e: Yes [facility] By: tobias Encounte r DateTime : 04/01/19 12 08:37:36 PM Not Available Not Available Not Available amlodipin e 2.5 mg tablet 04/03 completed Not Available Not Available Not Available Zyrtec 10 mg tablet take 1 tablet by oral route every day active Prescrib ed Elsewher e: Yes [facility]oca [facility] By: tobias Encounte r DateTime : 04/01/19 12 08:37:36 PM Not Available Not Available Not Available amlodipin e 5 mg tablet 04/03 completed Not Available Not Available Not Available tramadol 50 mg tablet 04/03 completed Not Available Not Available Not Available triamcino lone acetonide 0.1 % topical cream 04/03 completed Not Available Not Available Not Available flaxseed oil 1,000 mg capsule 06/23 completed Prescrib ed Elsewher e: Yes Loca tion: [facility] odify By: claire garcia DateTime : 04/02/19 12 04:30:00 PM Not Available Not Available Not Available alprazola m 0.25 mg tablet active Not Available Not Available Not Available Cipro 500 mg tablet take 1 tablet by oral route every 12 hours 07/04 completed Prescrib ed Elsewher e: No Locat ion: [facility] odify By: audi coreas DateTime : 02/28/19 16 02:45:00 PM Not Available Not Available Not Available triamcino lone acetonide 0.1 % topical ointment 01/11 completed Not Available Not Available Not Available Valtrex 1 gram tablet TAKE 1 TABLET BY ORAL ROUTE EVERY 12 HOURS FOR 10 DAYS 07/14 completed Prescrib ed Elsewher e: No Locat ion: [facility] odify By: fermin garcia DateTime : 03/26/19 16 08:10:32 AM Not Available Not Available Not Available aspirin 81 mg chewable tablet active Not Available Not Available Not Available estradiol 0.01% (0.1 mg/gram) vaginal cream Insert 1 applicat orful by vaginal route. 04/03 completed Not Available Not Available Not Available Centrum 0.4 mg-162 mg-18 mg tablet active Prescrib ed Elsewher e: Yes Loca tion: [facility] odify By: eduin garcia DateTime : 04/02/19 12 04:30:00 PM Not Available Not Available Not Available Premarin 0.625 mg/gram vaginal cream insert (1G) by vaginal route every day use nightly for 2-4 weeks then 1-2 times per week 06/30 completed Prescrib ed Elsewher e: No Locat ion: [facility] odify By: claire garcia DateTime : 06/29/19 13 01:00:00 PM Not Available Not Available Not Available rosuvasta tin 10 mg tablet active Not Available Not Available Not Available rosuvasta tin 20 mg tablet 04/03 completed Not Available Not Available Not Available bupropion HCl XL 300 mg 24 hr tablet, extended release take 1 tablet by oral route every day 11/28 completed Not Available Not Available Not Available nitrofura ntoin monohydra te/macroc rystals 100 mg capsule 01/11 completed Not Available Not Available Not Available ibandrona te 150 mg tablet Take 1 tablet every month by oral route. 04/03 completed Not Available Not Available Not Available Benefiber (guar gum) 1 gram tablet 07/03 completed Prescrib ed Elsewher e: Yes Loca tion: [facility] odify By: claire garcia DateTime : 04/02/19 12 04:30:00 PM Not Available Not Available Not Available Fish Oil 01/11 completed Not Available Not Available Not Available Prilosec 01/11 completed Not Available Not Available Not Available Zyrtec 01/11 completed Not Available Not Available Not Available Fish Oil 120 mg-180 mg-500 mg capsule 06/30 completed Prescrib ed Elsewher e: Yes Loca tion: [facility] odify By: claire garcia DateTime : 04/02/19 12 04:30:00 PM Not Available Not Available Not Available Multi Vitamin 01/11 completed Not Available Not Available Not Available MegaRed Plant-Ome ga-3 300 mg capsule 01/11 completed Prescrib ed Elsewher e: Yes Loca tion: [facility] odify By: claire garcia DateTime : 07/01/19 14 01:00:00 PM Not Available Not Available Not Available Vitals Date Recorded Body height Body mass index (BMI) Body weight Systolic blood pressure Diastolic blood pressure Provider Name and Address Organization Details Last Updated DateTime 01/11/2021 160.66 cm 29.3 kg/m2 68960.93 g 136 mm[Hg] 86 mm[Hg] Romina Brown [facility] 1 14:09:05 Date Recorded Body height Body mass index (BMI) Body weight Systolic blood pressure Diastolic blood pressure Provider Name and Address Organization Details Last Updated DateTime 04/24/2021 160.66 cm 29.5 kg/m2 56077.52 g 133 mm[Hg] 82 mm[Hg] Romina Brown [facility] 2 14:08:27 Date Recorded Body height Body mass index (BMI) Body weight Systolic blood pressure Diastolic blood pressure Provider Name and Address Organization Details Last Updated DateTime 02/26/2022 160.66 cm 29 kg/m2 53883.74 g 146 mm[Hg] 86 mm[Hg] Romina Brown [facility] 3 16:05:14 Date Recorded Body height Body mass index (BMI) Body weight Systolic blood pressure Diastolic blood pressure Provider Name and Address Organization Details Last Updated DateTime 04/03/2023 160.66 cm 29.2 kg/m2 86436.33 g 154 mm[Hg] 79 mm[Hg] Romina Brown [facility] 4 16:11:01 Date Recorded Body height Body mass index (BMI) Body weight Systolic blood pressure Diastolic blood pressure Provider Name and Address Organization Details Last Updated DateTime 11/29/2019 160.66 cm 29.9 kg/m2 88889.7 g 133 mm[Hg] 81 mm[Hg] Romina Brown [facility] 0 14:15:48 Social History Question Answer Notes LastModified by Organizat ion Details LastModified Time Tobacco Smoking Status Former Smoker Romina Brown [facility] 02/26/2022 16:05:35 Do You Have An Advance Directive? No [email or web address] Information not available 02/26/2022 What Is Your Level Of Alcohol Consumption? Moderate [email or web address] Information not available 11/29/2019 Are You Blind Or Do You Have Difficulty Seeing? No [email or web address] Information not available 01/11/2021 What Is Your Level Of Caffeine Consumption? Occasional Information not available 02/26/2022 In The 14 Days Before Symptom Onset, Have You Had Close Contact With A Laboratory-confir med COVID-19 While That Case Was Ill? No [email or web address] Information not available 04/24/2021 In The 14 Days Before Symptom Onset, Have You Had Close Contact With A Person Who Is Under Investigation For COVID-19 While That Person Was Ill? No [email or web address] Information not available 04/24/2021 Have You Been To An Area Known To Be High Risk For COVID-19? No [email or web address] Information not available 04/24/2021 Are You Deaf Or Do You Have Serious Difficulty Hearing? No [email or web address] Information not available 01/11/2021 What Type Of Diet Are You Following? REGULAR Information not available 01/11/2021 Do You Or Have You Ever Used E-cigarettes Or Vape? Never Used Electronic Cigarettes [email or web address] Information not available 02/26/2022 What Was The Date Of Your Most Recent Tobacco Screening? 04/03/2023 [email or web address] Information not available 04/03/2023 Have You Ever Been Counseled For Unhealthy Alcohol Use? No [email or web address] Information not available 02/26/2022 Do You Use Your Seat Belt Or Car Seat Routinely? Yes [email or web address] Information not available 02/26/2022 Do You Have Smoke And Carbon Monoxide Detectors In Your Home? Yes [email or web address] Information not available 02/26/2022 Do You Or Have You Ever Used Smokeless Tobacco? Never Used Smokeless Tobacco [email or web address] Information not available 02/26/2022 How Much Tobacco Do You Smoke? No Information not available 11/29/2019 Do You Feel Stressed (tense, Restless, Nervous, Or Anxious, Or Unable To Sleep At Night)? [id number] [email or web address] Information not available 02/26/2022 Do You Use Any Illicit Or Recreational Drugs? No [email or web address] Information not available 04/24/2021 Do You Use Sunscreen Routinely? Yes [email or web address] Information not available 02/26/2022 Have You Used IV Drugs? No [email or web address] Information not available 02/26/2022 Sex: Unknown Functional Status Question Answer Note LastModified by Organizat ion Details LastModified Time Do you have difficulty walking or climbing stairs? No [email or web address] Information not available 02/26/2022 Are you able to walk? YESWOREST [email or web address] Information not available 01/11/2021 Are you able to care for yourself? Yes [email or web address] Information not available 02/26/2022 Do you have difficulty dressing or bathing? No [email or web address] Information not available 02/26/2022 What is your exercise level? Occasional [email or web address] Information not available 11/29/2019 Mental Status None recorded. Family History Relationship Description Onset Age of this Age Resolved Age Notes LastModified by Organization Details LastModified Time Father Alzheimer's disease [email or web address] Not available 2022 15:38:57 Maternal Grandfather Diabetes mellitus [email or web address] Not available 11/28 01:00:59 Maternal Grandmother Family history of stroke [email or web address] Not available 2022 15:38:57 Mother Malignant neoplasm of liver [email or web address] Not available 2022 15:38:57 Mother Malignant tumor of cervix [email or web address] Not available 11/28 01:01:44 Mother Malignant neoplasm of uterus [email or web address] Not available 11/28 01:02:04 Notes:Father: Alzheimer's Di eliezere Maternal grandfather: Diabetes mellitus Maternal grandmother: Stroke Mother: uterine cancer, liver cancer, Cervical cancer Medical History Condition Response Allergies (Food, seasonal, environmental ) N Other Y Breast Cancer N Drug/Latex Allergies/Reactions N Blood Transfusion N Dermatologic Disorders N Lung Disease N Defects or Inherited Disease N Breast Problem N Gestational Diabetes N Hematologic disorders N Anesthesia Complications N History of STI Y Deep Vein Thrombosis N Polycystic ovary syndrome N Anxiety Disorder Y Autoimmune disease N Arthritis N Infertility N Polyps N Acid Reflux (GERD) Y History of abnormal pap Y Cancer Y Stroke N Varicosities N Neurologic/Epilepsy N Endometriosis N High Cholesterol Y Headaches N Fibromyalgia N Kidney Disease N Heart Problems Y Kidney or Bladder Problems Y Thyroid Problems N GI Problems N Eating Disorder N Anemia Y Art (IVF or FET) N Psychiatric Illness N Ovarian Cancer N Diabetes N Pulmonary (TB, Asthma) Y Hepatitis/Liver Disease N No Past Medical History N Eczema N Urinary Tract Infection N Abuse/Domestic Violence N Asthma N Trauma/Violence N Depression/ depression N Heart Disease N Pre-Eclampsia N Hypertension Y Osteoporosis Y Thrombophilias N Gynecological History Statement/Question Response Abnormal Pap Yes Date of Last Mammogram 03/24/2022 Date of LMP 06/24/2004 N STIs/STDs Yes HPV Vaccine N Colposcopy 02/23/2014 09/21/2020 Current Control Method Hysterectom y Date of Last Colonoscopy 02/23/2014 Date of DEXA bone scan 07/15/2012 Date of Last Pap Smear 04/03/2023 LMP Definite N 02/23/2018 Obstetrics History GPAL:G 1 P 0 0 1 0 Type Value Induced 1 Living 0 Total 1 Past Encounters Encounter ID Performer Location Encounter Start Date Encounter Closed Date Diagnosis/Indication Diagnosis SNOMED-CT Code Diagnosis ICD10 Code Diagnosis Note [id number] [facility] Perr[facility] [address],[place] [address] 11/29/2019 13:34:59 11/29/2019 15:01:25 Gynecologic examination 41667030 Z01.419 [id number] [facility] Perr[facility] [address],[place] [address] 01/11/2021 13:39:32 01/11/2021 15:04:05 Osteoporosis 19883135 M81.0 f/u dexa next year Gynecologi c examination 10039847 Z01.419 [id number] [facility] P[facility] [address],[place] [address] 04/24/2021 13:34:07 04/24/2021 14:20:02 Osteopenia 284791515 M85.80 [id number] [facility] Perr[facility] [address],[place] [address] 02/26/2022 15:38:49 02/26/2022 18:37:05 Atrophic vaginitis 66612124 N95.2 will see if we can get local estrogen covered Gynecologi c examination 85449283 Z01.419 Z11.51 [id number] [facility] [address],[place] [address] 04/03/2023 15:31:30 04/06/2023 13:05:47 Gynecologic examination 59326865 Z01.419 Z11.51 Health Concerns Section Related Observation LastModified by Organization Detai ls LastModified Time None Recorded Concern Status LastModified by Organization Details LastModified Time None Recorded Advance Directives Directive N: Payers Encounter Date Sequence Insurance Name Policy Number Policy Car Covered Member ID Car Member ID Guarantor Name 11/29/2019 1 [facility] [id number] Shona Max [id number] Shona Max 01/11/2021 1 [place] [id number] U Shona Max [id number] Shona Max 04/24/2021 1 [place] [id number] U Shona Max [id number] Shona Max 02/26/2022 1 [place] [id number] U Shona Max [id number] Shona Max 04/03/2023 1 [place] [id number] U Shona Max [id number] Shona Max Notes Date Note Type Note Provider Name and Address Organization Details Recorded Time 0 text/html Annual GYNReported bypatient.Menstrual cycle:Normal menses Urinary symptoms:No hematuria; No incontinence Vulva:No genital lesion Vagina:Normal vaginal discharge Breast:No breast pain; No breast lump; No nipple discharge Sexual complaints:No sexual complaints; No pain during intercourse; Normal libido Menopausal Symptoms:No menopausal symptoms; Normal vaginal lubrication Psychological symptoms:No depression; No anxiety; No PMDDNotes:hx hpv on pap, mammogram done, colonoscopy up to date, osteoporosis followed by pcp Ashley Perrin CNM [address], [place], [address], [facility] 11/29/2019 14:37:23 1 text/html Annual GYNReported bypatient.Breast:No breast pain; No breast lump; No nipple discharge Sexual complaints:No sexual complaints; No pain during intercourse; Normal libido Menopausal Symptoms:No menopausal symptoms; Normal vaginal lubrication Psychological symptoms:No depression; No anxiety; No PMDD Preventive measures:Encourage self breast examination; Encourage regular exercise; Encourage no tobacco use; Encourage regular mammograms starting age 40Notes:pt wanting pap this year hx hpv last year wnl, dx osteoporosis, thought fosomax made hips hurt didnt like taking it weekly, took for about 2 years, would like to try the once monthly boniva, will get dexa copy from pcp takes ca and vit d Ashley Perrin CNM [address], [place], [address], [facility] 01/11/2021 14:36:27 2 text/html no charge visit, hpv negative, unsat pap, hysterectomy can wait until wwe, discussed with pt and pt ok with plan, would like to go back to weekly meds for bone denisty Ashley Perrin CNM [address], [place], [address], [facility] 04/24/2021 14:18:21 3 text/html Annual GYNReported bypatient.History:sorene ss r/t atrophy Menstrual cycle:Normal menses Urinary symptoms:No hematuria; No incontinence Vulva:No genital lesion Vagina:Normal vaginal discharge Breast:No breast pain; No breast lump; No nipple discharge Sexual complaints:No sexual complaints; Normal libido;Pain during intercourse Menopausal Symptoms:No menopausal symptoms; Normal vaginal lubrication Psychological symptoms:No depression; No anxiety; No PMDD Preventive measures:Encourage self breast examination; Encourage regular exercise; Encourage no tobacco use; Encourage regular mammograms starting age 40; Mammogram performed within the past year; Up to date on colonoscopy screeningNotes:started on bisphosphonate in june 2021, taking weekly and remembering the med Ashley Perrin CNM [address], [place], [address], [facility] 02/26/2022 17:10:27 4 text/html Annual GYNReported bypatient.Menstrual cycle:hysterectomy, pap done after hyst +HPV, last 2 years neg HPV Urinary symptoms:No hematuria; No incontinence Vulva:No genital lesion Vagina:Normal vaginal discharge Breast:No breast pain; No breast lump; No nipple discharge Sexual complaints:No sexual complaints; No pain during intercourse; Normal libido Menopausal Symptoms:No menopausal symptoms; Normal vaginal lubrication Psychological symptoms:No depression; No anxiety; No PMDD Preventive measures:Encourage self breast examination; Encourage regular exercise; Encourage no tobacco use; Encourage regular mammograms starting age 40; Mammogram performed within the past yearNotes:dx lung cancer middle lobe removed, heart palpitations saw hadoop consultant this amhusband had 2nd hip replacementreviewed risks of hpv and will plan to defer pap this year Ashley Perrin CNM [address], [place], [address], [facility] 04/04/2023 17:12:34 OBGyn Episode Ob Episode Information Episode Created Date Number of Fetuses Patient Bloodtype Patient rh Status Prepregnancy Weight lbs Domestic Partner Domestic Partner Phone Father Name [employer] C[employer] Machine Status 11/29/19 20 1 CLOSED Fetus Data First Name Last Name Admitted to NICU Weight (g) Sex Living Outcome Pediatric Complications Fetus ID Race Codes Race Delivery Type , Induced [id number] Kehinde Calculation Initial Kehinde Date Initial Exam Date Initial Exam Provider Initial Ultrasound Date Last Menstrual Period Date Ultra Sound Weeks Gestation 0 Eighteen To Twenty Week Kehinde Update Ultra Sound Date Fundal Height At Umbil Quickening Date Ultra Sound Latest Weeks Gestation Final Kehinde Confirmed By Final Kehinde Confirmed Date Final Kehinde Date Ultra Sound Latest Days Gestation 0 0 Menstrual History Last Menstrual Date Menses Monthly On Bcp Conception Prior Menses Frequency Hcg Plus Date Menarche Onset Age Delivery Information Delivery Date Delivery Type Labor Anesthesia Weeks Gestation Incision Type Labor Labor Length Hrs Delivered By Post Complications Tubal Sterilization Discharge Date Comments 1976 induced Discharge Information Feeding Method Contraceptive Method Maternal HG B and HCT Levels
== END 2024-06-28 14:53 | disposition home or self-care (01) ==
PROVIDERS: PCP Family Medicine; Visit Provider Advanced Practice Midwife
DX: Z12.31 Encounter for screening mammogram for malignant neoplasm of breast (principal)
CPT/HCPCS: 77063; 77067